=== PATIENT | female | born 2005 | race Two or more races ===

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

== ENCOUNTER 2023-08-25 06:17 | Emergency (ER) | payer OTHER, MEDICAID ==
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
[2023-08-25 09:10] VITALS: BP 120/74; O2SAT 97
== END 2023-08-25 09:05 | disposition home or self-care (01) ==
LOC: ED 06:17
DX: S00.03XA Contusion of scalp, initial encounter (principal); S20.212A Contusion of left front wall of thorax, initial encounter; V58.6XXA Passenger in pick-up truck or van injured in noncollision transport accident in traffic accident, initial encounter; Y93.89 Activity, other specified; Y92.410 Unspecified street and highway as the place of occurrence of the external cause
CPT/HCPCS: 99283